=== PATIENT | male | born 2000 | race African-American/Black ===

== ENCOUNTER 2024-10-04 23:52 | Emergency (ER) | payer MEDICAID ==
[~2024-10-04] VITALS: Ht 185.4 cm; Wt 83.0 kg
[2024-10-05 00:01] VITALS: O2SAT 100
[2024-10-05 00:15] VITALS: BP 137/79; PULSE 67; RESP 16; TEMP 37.1; O2SAT 98
[2024-10-05] MEDS ORDERED: IBUP-2029 MT (01:03)
[2024-10-05] MEDS ORDERED: HYDR30CR80 TP (01:03)
[2024-10-05] MEDS ORDERED: POLY17PO3 MT (01:03)
== END 2024-10-05 01:25 | disposition home or self-care (01) ==
LOC: ER 23:52
DX: K64.4 Residual hemorrhoidal skin tags (principal); J45.909 Unspecified asthma, uncomplicated; Z79.899 Other long term (current) drug therapy
CPT/HCPCS: 99283